=== PATIENT | male | born 1945 | race Caucasian/White ===

== ENCOUNTER 2020-03-01 10:41 | Day surgery (SDC) | payer OTHER ==
[~2020-03-01] VITALS: Ht 185.4 cm; Wt 131.0 kg
[~2020-03-01 10:41] MED LIST: ASPI325 PO; GLIP5 PO; HYDR1TAB94 PO; LISI5 PO; METF500 PO; MULTI VITAMIN1 EACH; RANI150 PO; SIMV10 PO
[2020-03-01] MEDS ORDERED: METF500 PO (11:39)
[2020-03-01] MEDS ORDERED: ZOCOR20 MG PO (11:39)
[2020-03-01] MEDS ORDERED: ELIQUIS5 MG PO ×2 (11:40→11:50)
[2020-03-01] MEDS ORDERED: METO50ER PO (11:40)
[2020-03-01] MEDS ORDERED: Amiodarone HCl200 MG PO (11:41)
[2020-03-01] MEDS ORDERED: BASAGLAR K100 UNIT/1 SC (11:42)
--- NOTE | 2020-03-01 12:48 | NUR ---
PATIENT TOLERATED PROCEDURE. PIV DISCONTINUED. CATHETER TIP INTACT AND PRESSURE DRESSSING APPLIED. DISCHARGE INSTRUCTIONS REVIEWED AND COPY GIVEN TO THE PATIENT. PATIENT AMBULATORY. SERVICE STATION ATTENDANT.
== END 2020-03-01 22:40 | disposition home or self-care (01) ==
LOC: MHTC 10:41
DX: I48.91 Unspecified atrial fibrillation (principal)
CPT/HCPCS: J2704; J7030

== ENCOUNTER 2020-07-03 10:52 | Emergency (ER) | payer OTHER ==
[~2020-07-03] VITALS: Ht 190.5 cm; Wt 131.5 kg
[~2020-07-03 10:52] MED LIST changes: +Amiodarone HCl200 MG PO; +BASAGLAR K100 UNIT/1 SC; +ELIQUIS5 MG PO; +METO50ER PO; +ZOCOR20 MG PO
[2020-07-03 12:40] LABS: Calcium, Ionized (POC) 1.14 mmol/L (1.10-1.46); Chloride (POC) 103 mmol/L (98-108); Creatinine (POC) 1.2 mg/dL (0.8-1.3); Glucose (ISTAT POC) 135 mg/dL (70-99); Potassium (POC) 4.5 mmol/L (3.5-5.5); Sodium (POC) 141 mmol/L (135-148); Total CO2 (POC) 27 mmol/L (21-32)
[2020-07-03 12:42] LABS: BASOPHILS ABSOLUTE AUTO 0.05 K/mm3 (0.00-0.23); BASOPHILS PERCENT AUTO 1 % (0-2); EOSINOPHILS PERCENT AUTO 1 % (0-6); Hematocrit 47.9 % (37.0-53.0); Hemoglobin 15.8 g/dL (13.5-17.5); IMMATURE GRAN ABSOLUTE AUTO 0.06 K/mm3 (0.00-0.10); IMMATURE GRAN PERCENT AUTO 1 % (0-1); LYMPHOCYTES ABSOLUTE AUTO 1.05 K/mm3 (0.84-5.20); LYMPHOCYTES PERCENT AUTO 14 % (21-46); MONOCYTES ABSOLUTE AUTO 0.55 K/mm3 (0.16-1.47); MONOCYTES PERCENT AUTO 8 % (4-13); Mean Corpuscular HGB 30.5 pg (26.0-34.0); Mean Corpuscular Volume 93 fL (80-100); Mean Platelet Volume 9.3 fL (9.1-12.4); NEUTROPHILS ABSOLUTE AUTO 5.52 K/mm3 (1.96-9.15); NEUTROPHILS PERCENT AUTO 75 % (41-73); Platelet Count 229 K/mm3 (150-400); RDW Coefficient Variation 13.1 % (11.7-14.2); RDW Standard Deviation 44.8 fL (35.1-46.3); Red Blood Cell Count 5.18 M/mm3 (4.30-5.90); White Blood Cell Count 7.33 K/mm3 (4.00-11.30)
[2020-07-03 13:06] LABS: Alanine Aminotransfer (ALT/SGP 33 U/L (12-78); Albumin, Blood 3.8 g/dL (3.4-5.0); Albumin/Globulin Ratio 0.8 (0.8-1.8); Alk Phos 73 U/L (50-136); Anion Gap 7 mmol/L (6-16); Aspartate Aminotrans (AST/SGOT 34 U/L (12-37); Bilirubin, Total 1.1 mg/dL (0.1-1.0); Blood Urea Nitrogen 18 mg/dL (8-24); Bun/Creatinine Ratio 18.1 (12.0-20.0); CO2, Blood 27 mmol/L (21-32); Calcium, Blood 9.3 mg/dL (8.5-10.1); Chloride, Blood 107 mmol/L (98-108); Globulin, Blood 4.6 g/dL (2.2-4.0); Glomerular Filtration Rate >60 (60-); Glucose, Blood 135 mg/dL (70-99); Potassium, Blood 4.6 mmol/L (3.5-5.5); Sodium, Blood 141 mmol/L (136-145); Total Protein, Blood 8.4 g/dL (6.4-8.2)
[2020-07-03] MEDS ORDERED: HYDACE10B PO (13:49)
== END 2020-07-03 13:55 | disposition home or self-care (01) ==
LOC: ER 10:52
PROVIDERS: Emergency Medicine
DX: S22.31XA Fracture of one rib, right side, initial encounter for closed fracture (principal); E11.9 Type 2 diabetes mellitus without complications; E78.00 Pure hypercholesterolemia, unspecified; I25.10 Atherosclerotic heart disease of native coronary artery without angina pectoris; Z79.01 Long term (current) use of anticoagulants; Z79.4 Long term (current) use of insulin; Z79.899 Other long term (current) drug therapy; Z87.891 Personal history of nicotine dependence; W11.XXXA Fall on and from ladder, initial encounter
CPT/HCPCS: 36415; 71046; 74177; 80047; 80053; 85014; 85025; 93005; 93010; 99284-25; A9270; Q9967

== ENCOUNTER 2021-12-03 10:55 | Emergency (ER) | payer OTHER ==
[~2021-12-03] VITALS: Ht 188 cm; Wt 112.0 kg
[~2021-12-03 10:55] MED LIST changes: +HYDACE10B PO
[2021-12-03 12:28] LABS: Source, Urine Clean Catch
[2021-12-03 12:36] LABS: BASOPHILS ABSOLUTE AUTO 0.06 K/mm3 (0.00-0.23); BASOPHILS PERCENT AUTO 1 % (0-2); EOSINOPHILS ABSOLUTE AUTO 0.12 K/mm3 (0.00-0.68); EOSINOPHILS PERCENT AUTO 1 % (0-6); Hematocrit 44.8 % (37.0-53.0); Hemoglobin 15.4 g/dL (13.5-17.5); IMMATURE GRAN ABSOLUTE AUTO 0.04 K/mm3 (0.00-0.10); IMMATURE GRAN PERCENT AUTO 1 % (0-1); LYMPHOCYTES ABSOLUTE AUTO 1.36 K/mm3 (0.84-5.20); LYMPHOCYTES PERCENT AUTO 16 % (21-46); MONOCYTES ABSOLUTE AUTO 0.81 K/mm3 (0.16-1.47); MONOCYTES PERCENT AUTO 10 % (4-13); Mean Corpuscular HGB 30.9 pg (26.0-34.0); Mean Corpuscular HGB Conc 34.4 g/dL (31.5-36.5); Mean Corpuscular Volume 90 fL (80-100); NEUTROPHILS ABSOLUTE AUTO 6.06 K/mm3 (1.96-9.15); NEUTROPHILS PERCENT AUTO 72 % (41-73); RDW Coefficient Variation 13.2 % (11.7-14.2); RDW Standard Deviation 43.5 fL (35.1-46.3); Red Blood Cell Count 4.98 M/mm3 (4.30-5.90); White Blood Cell Count 8.45 K/mm3 (4.00-11.30)
[2021-12-03 12:37] LABS: Albumin, Blood 3.5 g/dL (3.4-5.0); Albumin/Globulin Ratio 0.8 (0.8-1.8); Bilirubin, Total 1.6 mg/dL (0.1-1.0); Bun/Creatinine Ratio 29.8 (12.0-20.0); Calcium, Blood 9.5 mg/dL (8.5-10.1); Creatinine, Blood 0.67 mg/dL (0.60-1.20); Globulin, Blood 4.3 g/dL (2.2-4.0); Potassium, Blood 4.8 mmol/L (3.5-5.5); Total Protein, Blood 7.8 g/dL (6.4-8.2)
[2021-12-03 12:40] LABS: Mean Platelet Volume 10.6 fL (9.1-12.4)
[2021-12-03 12:54] LABS: Appearance, Urine Clear (Clear); Bilirubin, Urine Neg (Neg); Blood, Urine 5+ (Neg); Color, Urine Yellow (P-Yellow); Glucose Qualitative, Urine 4+ (Neg); Ketones, Urine Neg (Neg); Leukocyte Esterase, Urine Neg (Neg); Nitrite, Urine Neg (Neg); Protein, Urine Neg (Neg); Specific Gravity, Urine 1.015 (1.003-1.022); Urobilinogen, Urine NORM (Normal)
[2021-12-03 12:59] LABS: Platelet Count 231 K/mm3 (150-400)
[2021-12-03 13:13] LABS: Red Blood Cells, Urine 50-100 /hpf (0-2)
[2021-12-03 13:14] LABS: Bacteria Few /hpf; Squamous Epithelial Cells Rare /hpf (Few)
[2021-12-03] MEDS ORDERED: AMOCLA875 PO (13:58)
== END 2021-12-03 14:55 | disposition home or self-care (01) ==
LOC: ER 10:55
PROVIDERS: Physician Assistant
DX: K50.10 Crohn's disease of large intestine without complications (principal); E11.9 Type 2 diabetes mellitus without complications; I10 Essential (primary) hypertension; K21.9 Gastro-esophageal reflux disease without esophagitis; I25.10 Atherosclerotic heart disease of native coronary artery without angina pectoris; Z79.4 Long term (current) use of insulin; Z79.01 Long term (current) use of anticoagulants; Z79.899 Other long term (current) drug therapy; Z87.891 Personal history of nicotine dependence
CPT/HCPCS: 36415; 74177; 80053; 81001; 83690; 85025; Q9967